=== PATIENT | female | born 1980 | race African-American/Black ===

== ENCOUNTER 2017-10-31 14:06 | Emergency (ER) | payer OTHER ==
[~2017-10-31] VITALS: Ht 167.6 cm; Wt 77.6 kg
[~2017-10-31 14:06] MED LIST: ORTHO TRI-CYCL1 EAC1; PREVACID 30MG C30 M1 PO
== END 2017-10-31 16:09 | disposition home or self-care (01) ==
LOC: ER 14:06
DX: J06.9 Acute upper respiratory infection, unspecified (principal); L73.9 Follicular disorder, unspecified; R59.1 Generalized enlarged lymph nodes; B34.9 Viral infection, unspecified